=== PATIENT | female | born 1970 | race Caucasian/White ===

== ENCOUNTER 2017-10-31 07:33 | Inpatient (IN) | payer OTHER ==
[~2017-10-31] VITALS: Ht 167.6 cm; Wt 88.9 kg
[2017-11-01] MEDS ORDERED: LEVAQUIN750 MG PO (13:04)
[2017-11-01] MEDS ORDERED: FLAGYL500MG PO (13:05)
[2017-11-01] MEDS ORDERED: PERCOCET 5-3251 EACH PO (13:08)
== END 2017-11-01 18:15 | disposition home or self-care (01) | DRG 446 ==
LOC: ER 07:33 → SEC-K 15:11 → SURH 15:11
PROC: BW40ZZZ Ultrasonography of Abdomen (ICD-10-PCS; principal; 2017-10-31)
DX: K80.00 Calculus of gallbladder with acute cholecystitis without obstruction (principal); E66.01 Morbid (severe) obesity due to excess calories; Z98.84 Bariatric surgery status

== ENCOUNTER 2017-11-17 05:19 | Inpatient (IN) | payer OTHER ==
[~2017-11-17 05:19] MED LIST: ARMOUR THYROID60 M1 PO; FLAGYL500MG PO; LEVAQUIN750 MG PO; PERCOCET 5-3251 EACH PO; PROGESTERONE200 MG PO; WELLBUTRIN XL150 M1 PO
[2017-11-18] MEDS ORDERED: PERCOCET 5-3251 EACH PO (08:35)
== END 2017-11-18 11:46 | disposition home or self-care (01) | DRG 419 ==
LOC: CIR.AMB 05:19 → SURH 16:41
PROVIDERS: Surgery
PROC: 0DNW4ZZ Release Peritoneum, Percutaneous Endoscopic Approach (ICD-10-PCS; 2017-11-17)
PROC: 0FT44ZZ Resection of Gallbladder, Percutaneous Endoscopic Approach (ICD-10-PCS; principal; 2017-11-17 13:00)
DX: K80.00 Calculus of gallbladder with acute cholecystitis without obstruction (principal); E03.8 Other specified hypothyroidism; F32.89 Other specified depressive episodes; F17.210 Nicotine dependence, cigarettes, uncomplicated

== ENCOUNTER 2017-12-22 09:54 | Outpatient (CLI) | payer OTHER | END 2017-12-22 10:30 | disposition home or self-care (01) | LOC: SONOGRAMA 09:54 | DX: E04.8 Other specified nontoxic goiter (principal) ==

== ENCOUNTER 2018-04-19 10:42 | Outpatient (CLI) | payer OTHER | END 2018-04-19 14:52 | disposition home or self-care (01) | LOC: RAD 10:42 | DX: J40 Bronchitis, not specified as acute or chronic (principal) ==

== ENCOUNTER → 2021-03-31 | Emergency (ER) | payer OTHER ==
[~2021-03-31] VITALS: Ht 167.6 cm; Wt 106.1 kg
== END | disposition home or self-care (01) ==
LOC: ER 14:38
DX: M79.641 Pain in right hand (principal); M79.644 Pain in right finger(s)